=== PATIENT | female | born 1990 | race Two or more races ===

== ENCOUNTER 2020-02-07 20:34 | Emergency (ER) | payer OTHER ==
[~2020-02-07] VITALS: Ht 170.2 cm; Wt 82.0 kg
--- NOTE | 2020-02-07 21:11 | PHYS DOC ---
General Adult EDM: Chief Complaint: SKIN PROBLEM HPI: HPI: ".. I got this red area.. and almost a bump behind this Lt ear.. it feels hot.. " Patient is a 30 year old female who presents with above hx and cellulitis behind Lt. ear. No significant adenopathy. No history of immunosuppression. No history of trauma. No history of contact. History of prior MRSA. Does not have a fluctuant abscess. No history recent travel outside the [place] area. Patient normally follows with Dr. Tarango. Patient reportedly up-to-date with vaccinations in high school but may be due for a tetanus update. Review of Systems: Review of Systems: Constitutional: Denies fever or chills Eyes: Denies change in visual acuity HENT: Denies nasal congestion or sore throat. Complains of cellulitis behind left ear. Respiratory: Denies cough or shortness of breath Cardiovascular: Denies chest pain or edema GI: Denies abdominal pain, nausea, vomiting, bloody stools or diarrhea : Denies dysuria Musculoskeletal: Denies back pain or joint pain Integument: Denies rash Neurologic: Denies headache, focal weakness or sensory changes Endocrine: Denies polyuria or polydipsia Lymphatic: Denies swollen glands Psychiatric: Denies depression or anxiety Heart Score: Risk Factors: Risk Factors: DM, Current or recent (<one month) smoker, HTN, HLP, family history of CAD, obesity. Risk Scores: Score 0 - 3: 2.5% MACE over next 6 weeks - Discharge Home Score 4 - 6: 20.3% MACE over next 6 weeks - Admit for Clinical Observation Score 7 - 10: 72.7% MACE over next 6 weeks - Early Invasive Strategies Family History: Family History: Noncontributory Current Medications: Current Meds: See nursing for home meds Allergies: Allergies: Allergies Coded Allergies Type Severity Reaction Last Updated Verified No Known Drug Allergies 02/07/20 No Physical Exam: PE: Constitutional: Well developed, well nourished, mild distress, non-toxic appearance. [] HENT: Normocephalic, atraumatic, bilateral external ears normal, oropharynx moist, no oral exudates, nose normal. Small area of cellulitis behind left ear Eyes: PERRLA, EOMI, conjunctiva normal, no discharge. [] Neck: Normal range of motion, no tenderness, supple, no stridor. [] Cardiovascular:Heart rate regular rhythm, no murmur [] Lungs & Thorax: Bilateral breath sounds clear to auscultation [] Abdomen: Bowel sounds normal, soft, no tenderness, no masses, no pulsatile masses. [] Skin: Warm, dry, no erythema, no rash. [] Back: No tenderness, no CVA tenderness. [] Extremities: No tenderness, no cyanosis, no clubbing, ROM intact, no edema. [] Neurologic: Alert and oriented X 3, normal motor function, normal sensory function, no focal deficits noted. [] Psychologic: Affect anxious, judgement normal, mood normal. [] EKG: EKG: [] Radiology/Procedures: Radiology/Procedures: [] Course & Med Decision Making: Course & Med Decision Making Pertinent Labs and Imaging studies reviewed. (See chart for details) Patient use warm compresses of salt water or Epson salt 4 times a day. Then massage area Polysporin. Patient take Bactrim DS twice a day. Patient follow- up primary care. Patient take Tylenol and ibuprofen for pain or discomfort. Return if any concerns. Impression: 1. Cellulitis Lt. ear [] Dragon Disclaimer: Dragon Disclaimer: This electronic medical record was generated, in whole or in part, using a voice recognition dictation system. Departure Departure: Disposition: 01 HOME/RESIDENCE PRIOR TO ADM Condition: STABLE Referrals: DAVE TARANGO MD (PCP) Scripts Sulfamethoxazole/Trimethoprim (BACTRIM DS TABLET) 1 Each Tablet 1 TAB PO BID for cellultis for 7 Days, #14 TAB 0 Refills Prov: MARGARETTE JACOBS MD 02/07/20 MARGARETTE JACOBS MD Feb 07, 2020 21:11
[2020-02-07] MEDS ORDERED: SMZ/TMP 800/160MG TABLET. PO ONE (21:15)
[2020-02-07] MEDS ORDERED: SULF1TAB24 PO (21:27)
[2020-02-07] MEDS ORDERED: DIPH,PERTUSS(ACELL),TET VAC/PF 0.5 ML SYRINGE. VAX IM ONE (21:30)
[2020-02-07] MEDS ORDERED: TETANUS AND DIPHTHERIA TOX/PF 0.5 ML VIAL. VAX IM ONE (21:30)
[2020-02-07 23:34] VITALS: BP 130/85
== END 2020-02-07 22:05 | disposition home or self-care (01) ==
LOC: ER 20:34
DX: H60.12 Cellulitis of left external ear (principal); Z86.14 Personal history of Methicillin resistant Staphylococcus aureus infection
CPT/HCPCS: 90471; 90715; 99283

== ENCOUNTER 2020-08-07 13:42 | Emergency (ER) | payer OTHER ==
[~2020-08-07] VITALS: Ht 170.2 cm; Wt 82.0 kg
[~2020-08-07 13:42] MED LIST: SULF1TAB24 PO
[2020-08-07] MEDS ORDERED: CYCL-331 PO (14:24)
--- NOTE | 2020-08-07 14:24 | PHYS DOC ---
Past History Past Medical History: Diabetes, Sciatica (KYE CORDOVA APRN) Past Surgical History: Other Additional Past Surgical Histo: LEFT HIP A BABY (KYE CORDOVA APRN) Alcohol Use: None (KYE CORDOVA APRN) General Adult EDM: Chief Complaint: BACK PAIN - NO INJURY HPI: HPI: Patient is a 30-year-old female who presents with left lower back pain that radiates into her left leg. Patient states "I had sciatic pain in the past and this feels just the same". Patient reports that symptoms started on Saturday but today the pain was worse. Patient took an Aleve 2 hours ago. Patient denies urinary retention or loss of bowel. Pain is increased with movement. Has history of diabetes. (KYE CORDOVA APRN) Review of Systems: Review of Systems: Constitutional: Denies fever or chills Eyes: Denies change in visual acuity HENT: Denies nasal congestion or sore throat Respiratory: Denies cough or shortness of breath Cardiovascular: Denies chest pain or edema GI: Denies abdominal pain, nausea, vomiting, bloody stools or diarrhea : Denies dysuria Musculoskeletal: Reports lower back pain with radiation down her left leg Integument: Denies rash Neurologic: Denies headache, focal weakness or sensory changes Endocrine: Denies polyuria or polydipsia Lymphatic: Denies swollen glands Psychiatric: Denies depression or anxiety (KYE CORDOVA APRN) Allergies: Allergies: Allergies Coded Allergies Type Severity Reaction Last Updated Verified No Known Drug Allergies 02/07/20 No (KYE CORDOVA APRN) Physical Exam: PE: Constitutional: Well developed, well nourished, no acute distress, non-toxic appearance. [] HENT: Normocephalic, atraumatic, bilateral external ears normal, oropharynx moist, no oral exudates, nose normal. [] Eyes: PERRLA, EOMI, conjunctiva normal, no discharge. [] Neck: Normal range of motion, no tenderness, supple, no stridor. [] Cardiovascular:Heart rate regular rhythm, no murmur [] Lungs & Thorax: Bilateral breath sounds clear to auscultation [] Abdomen: Bowel sounds normal, soft, no tenderness, no masses, no pulsatile masses. [] Skin: Warm, dry, no erythema, no rash. [] Back: Lower left back tenderness, no CVA tenderness. [] Extremities: Left leg tenderness, ROM intact, no edema. [] Neurologic: Alert and oriented X 3, normal motor function, normal sensory function, no focal deficits noted. [] Psychologic: Affect normal, judgement normal, mood normal. [] (KYE CORDOVA APRN) Current Patient Data: Labs: Laboratory Tests Test 08/07/20 14:11 POC Urine HCG, Qualitative hcg negative (Negative) Vital Signs: Vital Signs Date Time Temp Pulse Resp B/P (MAP) Pulse Ox O2 Delivery O2 Flow Rate FiO2 08/07/20 13:45 98.6 84 20 122/83 (96) 97 Room Air (KYE CORDOVA APRN) EKG: EKG: [] (KYE CORDOVA APRN) Radiology/Procedures: Radiology/Procedures: [] (KYE CORDOVA APRN) Heart Score: C/O Chest Pain: No Risk Factors: Risk Factors: DM, Current or recent (<one month) smoker, HTN, HLP, family history of CAD, obesity. Risk Scores: Score 0 - 3: 2.5% MACE over next 6 weeks - Discharge Home Score 4 - 6: 20.3% MACE over next 6 weeks - Admit for Clinical Observation Score 7 - 10: 72.7% MACE over next 6 weeks - Early Invasive Strategies (KYE CORDOVA APRN) Course & Med Decision Making: Course & Med Decision Making Pertinent Labs and Imaging studies reviewed. (See chart for details) []Patient denies urinary retention or loss of bowel. Pain is increased with movement. Has history of diabetes. Patient had an Aleve about 2 hours before arriving to the emergency room. Denies relief. Patient given IM Toradol and Flexeril in the emergency room. Patient sent home with prescription for Flexeril. Patient is still able to ambulate and has full range of motion but produces pain. No signs of cauda equina. Patient is appreciative and okay with this plan. (KYE CORDOVA APRN) Course & Med Decision Making I oversaw on the above date of service of this patient and discussed the care with the MUSIC SPECIALIST. No red flag signs or symptoms of back pain. I agree with the find ings, plan of care, and disposition as documented. Electronically signed, Matthew Lee DO (MATTHEW LEE DO) Ivy Disclaimer: Ivy Disclaimer: This electronic medical record was generated, in whole or in part, using a voice recognition dictation system. (KYE CORDOVA APRN) Departure Departure: Impression: Primary Impression: Sciatic nerve pain Qualified Codes: M54.32 - Sciatica, left side Disposition: 09 ADMITTED INPT THIS HOSP Condition: STABLE Referrals: DAVE TARANGO MD (PCP) Patient Instructions: Sciatica, [id number] Additional Instructions: EMERGENCY DEPARTMENT GENERAL DISCHARGE INSTRUCTIONS Thank you for coming to [facility] (ED) today and trusting us with you care. We trust that you had a positivie experience in our Emergency Department. If you wish to speak to the department management, you may call the director at [phone]. YOUR FOLLOW UP INSTRUCTIONS ARE FOLLOWS: 1. Do you have a private Doctor? If you do not have a private doctor, please ask for a resource list of physicians or clinics that may be able to assist you with follow up care. 2. The Emergency Physician has interpreted your x-rays. The X-Ray specialist will also review them. If there is a change in the findings, you will be notified in 48 hours when at all possible. 3. A lab test or culture has been done, your results will be reviewed and you will be notified if you need a change in treatment. ADDITIONAL INSTRUCTIONS AND INFORMATION: 1. Your care today has been supervised by a physician who is specially trained in emergency care. Many problems require more than one evaluation for a complete diagnosis and treatment. We recommend that you schedule your follow up appointment as recommended to ensure complete treatment of you illness or injury. If you are unable to obtain follow up care and continue to have a problem, or if your condition worsens, we recommend that you return to the ED. 2. We are not able to safely determine your condition over the phone nor are we able to give sound medical advice over the phone. For these safety reasons, if you call for medical advice we will ask you to come to the ED for further evaluation. 3. If you have any questions regarding these discharge instructions please call the ED at [phone]. SAFETY INFORMATION: In the interest of safety, wellness, and injury prevention; we encourage you to wear your sealbelt, if you smoke; quite smoking, and we encourage family to use a protective helmet for bicycling and other sporting events that present an increased risk for head injury. IF YOUR SYMPTOMS WORSEN OR NEW SYMPTOMS DEVELOP, OR YOU HAVE CONCERNS ABOUT YOUR CONDITION; OR IF YOUR CONDITION WORSENS WHILE YOU ARE WAITING FOR YOUR FOLLOW UP APPOINTMENT; EITHER CONTACT YOUR PRIMARY CARE DOCTOR, THE PHYSICIAN WHOSE NAME AND NUMBER YOU WERE GIVEN, OR RETURN TO THE ED IMMEDIATELY. Scripts Cyclobenzaprine Hcl (CYCLOBENZAPRINE HCL) 10 Mg Tablet 1 TAB PO TID PRN for PAIN for 10 Days, #30 TAB 0 Refills Prov: KYE CORDOVA APRN 08/07/20 YKE CORDOVA APRN Aug 07, 2020 14:24 MATTHEW LEE DO Aug 11, 2020 07:55
[2020-08-07] MEDS ORDERED: KETOROLAC 15 MG/ML VIAL. IM ONE (14:30)
[2020-08-07] MEDS ORDERED: CYCLOBENZAPRINE 10 MG TABLET. PO ONE (14:30)
[2020-08-07 14:45] LABS: BACTERIA,URINE 0 /HPF (0-FEW); BILIRUBIN,URINE NEG (NEG); CLARITY,URINE CLEAR; COLOR,URINE YELLOW; GLUCOSE,URINE >=1000 mg/dL (NEG); NITRITE,URINE NEG (NEG); RBC,URINE OCC /HPF (0-2); SQUAMOUS EPITHELIAL CELL,UR MOD /LPF; UROBILINOGEN,URINE 0.2 mg/dL (0.2 mg/dL); WBC,URINE 0 /HPF (0-4)
[2020-08-07 14:48] VITALS: BP 113/54
== END 2020-08-07 14:55 | disposition home or self-care (01) ==
LOC: ER 13:42
DX: M54.42 Lumbago with sciatica, left side (principal); E11.9 Type 2 diabetes mellitus without complications
CPT/HCPCS: 81001; 81025; 96372; 99283; J1885

== ENCOUNTER 2020-12-03 16:58 | Emergency (ER) | payer OTHER ==
[~2020-12-03] VITALS: Ht 170.2 cm; Wt 78.0 kg
[~2020-12-03 16:58] MED LIST changes: +CYCL-331 PO
[2020-12-03 17:05] VITALS: BP 129/85
[2020-12-03] MEDS ORDERED: AMOX1TAB61 PO (17:22)
--- NOTE | 2020-12-03 17:24 | PHYS DOC ---
Past History Past Medical History: Diabetes, Sciatica Past Surgical History: Other Additional Past Surgical Histo: LEFT HIP A BABY Alcohol Use: None General Adult EDM: Chief Complaint: EARACHE/EAR PAIN Problems: (1) Ear pain, left HPI: HPI: 30-year-old otherwise healthy female presents to the emergency room complaining of pressure-like left ear pain, sinus pressure over her frontal and maxillary sinuses for the past 4 days. She denies any recent travel. No trouble hearing and no pain or symptoms in the right ear. The patient denies nausea, vomiting, fever, chills, chest pain, shortness of breath, abdominal pain, urinary symptoms, cough, recent trauma, or any other complaints. Review of Systems: Review of Systems: Review of systems is otherwise negative except for what was documented in HPI. Family History: Family History: Negative Allergies: Allergies: Allergies Coded Allergies Type Severity Reaction Last Updated Verified No Known Drug Allergies 02/07/20 No Physical Exam: PE: Constitutional: No acute distress, non-toxic appearance. HENT: Maxillary and frontal sinus tenderness to palpation, left TM with small amount of petechiae,, cone of light is seen, no TM bulging. Right ear is within normal limits. Eyes: PERRLA, EOMI, conjunctiva normal, no discharge. Neck: Normal range of motion, supple, no stridor. Cardiovascular: Heart rate regular rhythm. 2+ radial pulses Lungs & Thorax: No respiratory distress, symmetrical expansion. Skin: Warm, dry. Extremities: No tenderness, no cyanosis, ROM intact, no edema. Neurologic: Alert and oriented X 3, normal motor function, normal sensory function, no focal deficits noted. Non ataxic gait. GCS 15. Psychologic: Affect normal, judgment normal, mood normal. Current Patient Data: Labs: test negative Vital Signs: Vital Signs Date Time Temp Pulse Resp B/P (MAP) Pulse Ox O2 Delivery O2 Flow Rate FiO2 12/03/20 17:05 98.4 92 16 129/85 100 Heart Score: C/O Chest Pain: No Course & Med Decision Making: Course & Med Decision Making Patient with small amount of petechia in the left TM, cone of light was seen bilaterally, suspect this is likely early sinusitis. She was given Toradol in the emergency department for pain I discussed with the patient that most likely she is suffering from a viral cause of her symptoms. I will write her a prescription for Augmentin with instructions not to fill the prescription until 3 days from now if she is not feeling improved by that time. She was amenable to this plan. She has no other acute findings on exam and appears well clinically Departure Departure: Impression: Primary Impression: Sinusitis Disposition: HOME / SELF CARE / HOMELESS Condition: STABLE Referrals: DAVE TARANGO MD (PCP) Patient Instructions: Sinusitis, [id number] Additional Instructions: You are seen in the emergency department for sinusitis. Please do not fill your antibiotics until you reach day 7 of your symptoms as we discussed. You have been given a prescription for Augmentin. This medicine is an antibiotic for sinusitis. Please take as prescribed for the full course of the prescription. Do not stop taking the medicine early if you feel better, as this could risk building antibiotic resistance and may put you at risk for a more harmful infection later. The most common side effect of antibiotics include nausea, vomiting, diarrhea and rash. Please come to be evaluated if you develop any symptoms that are concerning to you. One major adverse effect of antibiotics is the development of a diarrheal illness called c. diff colitis, if you develop an excessive amount of diarrhea or are concerned about this please return to the ER or consult a physician. Scripts Amoxicillin/Potassium Clav (AUGMENTIN [id number] TABLET) 1 Each Tablet 1 TAB PO BID for sinusitis for 7 Days, #14 TAB 0 Refills Prov: DAVID CHENG DO 12/03/20 DAVID CHENG DO Dec 03, 2020 17:24
[2020-12-03] MEDS ORDERED: KETOROLAC 15 MG/ML VIAL. IM ONE (17:30)
== END 2020-12-03 18:00 | disposition home or self-care (01) ==
LOC: ER 16:58
DX: J32.9 Chronic sinusitis, unspecified (principal); E11.9 Type 2 diabetes mellitus without complications
CPT/HCPCS: 81025; 96372; 99283; J1885